=== PATIENT | male | born 1980 | race Caucasian/White ===

== ENCOUNTER → 2021-02-19 | Outpatient (CLI) | payer OTHER | LOC: HEART 5 13:34 | DX: J30.9 Allergic rhinitis, unspecified (principal) | CPT/HCPCS: 94010; 95012 ==

== ENCOUNTER 2022-04-13 03:02 | Inpatient (IN) | payer OTHER ==
[~2022-04-13] VITALS: Ht 200.7 cm; Wt 117.9 kg
[2022-04-13 03:39] LABS: HEMOGLOBIN 13.3 gm/dl (14.0-17.5); RED BLOOD COUNT 4.5 M/UL (4.20-5.50); WHITE BLOOD COUNT 14.2 K/UL (4.5-11.0)
[2022-04-13 04:08] LABS: BUN/CREATININE RATIO 13 (0-10)
[2022-04-13] MEDS ORDERED: GABAPENTIN300 MG PO (07:01)
[2022-04-13] MEDS ORDERED: TRAMADOL HCL50 MG PO (07:01)
[2022-04-13] MEDS ORDERED: SYMBICORT 16010.2 GM INH (07:02)
[2022-04-13] MEDS ORDERED: FLONASE 0.05% N16 GM (07:03)
[2022-04-13] MEDS ORDERED: CLARITIN-D 241 EACH PO (07:03)
[2022-04-14 03:34] LABS: RED BLOOD COUNT 4.03 M/UL (4.20-5.50); WHITE BLOOD COUNT 9.6 K/UL (4.5-11.0)
--- NOTE | 2022-04-14 20:29 | NUR ---
PT STATES THE DR TOLD HIM THAT HE COULD TAKE HOME SYMBICORT. PT REFUSED PULMICORT AND NATALYA MCQUEEN.
== END 2022-04-15 18:14 | disposition home or self-care (01) | DRG 280 ==
LOC: ER1 03:02 → CCU 07:05 → PROG CARE 04-15 08:05
PROVIDERS: Internal Medicine; Internal Medicine Critical Care Medicine; Physician Assistant; Student in an Organized Health Care Education/Training Program; ADMIT Internal Medicine Cardiovascular Disease
PROC: B24BZZZ Ultrasonography of Heart with Aorta (ICD-10-PCS; principal; 2022-04-13)
PROC: 4A023N7 Measurement of Cardiac Sampling and Pressure, Left Heart, Percutaneous Approach (ICD-10-PCS; 2022-04-13)
PROC: B2111ZZ Fluoroscopy of Multiple Coronary Arteries using Low Osmolar Contrast (ICD-10-PCS; 2022-04-13)
DX: I21.4 Non-ST elevation (NSTEMI) myocardial infarction (principal); I50.23 Acute on chronic systolic (congestive) heart failure; Z20.822 Contact with and (suspected) exposure to COVID-19; I31.9 Disease of pericardium, unspecified; I51.81 Takotsubo syndrome; I42.8 Other cardiomyopathies; N17.9 Acute kidney failure, unspecified; I13.0 Hypertensive heart and chronic kidney disease with heart failure and stage 1 through stage 4 chronic kidney disease, or unspecified chronic kidney disease; I95.9 Hypotension, unspecified; R00.1 Bradycardia, unspecified; E66.9 Obesity, unspecified; G89.29 Other chronic pain; E86.0 Dehydration; N18.30 Chronic kidney disease, stage 3 unspecified; M54.9 Dorsalgia, unspecified; J30.2 Other seasonal allergic rhinitis; J45.30 Mild persistent asthma, uncomplicated; G47.33 Obstructive sleep apnea (adult) (pediatric); E86.9 Volume depletion, unspecified; Z98.890 Other specified postprocedural states; Z80.42 Family history of malignant neoplasm of prostate; Z83.3 Family history of diabetes mellitus; Z82.3 Family history of stroke; Z82.49 Family history of ischemic heart disease and other diseases of the circulatory system; Z68.30 Body mass index [BMI] 30.0-30.9, adult
CPT/HCPCS: ECHO; 36415; 71045; 80048; 80053; 82550; 82553; 84484; 85025; 85379; 86140; 93005; 93306; 94640; 94664; 94760; 96374; 96375; 99285; C1769; C1887; C1894; J1644; J2060; J2250; J3010; J7040; Q9965

== ENCOUNTER → 2022-07-15 | Outpatient (CLI) | payer OTHER ==
[~2022-07-15] MED LIST: CLARITIN-D 241 EACH PO; FLONASE 0.05% N16 GM; GABAPENTIN300 MG PO; SYMBICORT 16010.2 GM INH; TRAMADOL HCL50 MG PO
== END ==
LOC: HEART 5 09:11
DX: I51.81 Takotsubo syndrome (principal); R94.30 Abnormal result of cardiovascular function study, unspecified; I34.1 Nonrheumatic mitral (valve) prolapse
CPT/HCPCS: 93306